=== PATIENT | female | born 2000 | race Caucasian/White ===

== ENCOUNTER 2021-12-31 13:27 | Emergency (ER) | payer MEDICAID ==
[~2021-12-31] VITALS: Ht 172.7 cm; Wt 68.0 kg
[~2021-12-31 13:27] MED LIST: FLUORESCEIN SODIUM 1 MG OPHTHALMIC STRIP OP ONE; PROPARACAINE (OPTHANINE 0.5%) 15 ML DROPS OP ONE
[2021-12-31 13:30] VITALS: BP_SYST 113
--- NOTE | 2021-12-31 13:30 | NUR ---
Patient triaged and placed in waiting room. VSS and patient appears in no acute distress at this time. Accompanied by SELF, awaiting available bed, and MD notified of need for MSE.
--- NOTE | 2021-12-31 13:36 | NUR ---
PT STATES SHE IS [facility] IN [facility] AND SINCE YESTERDAY HAS HAD A RED AND PAINFUL RIGHT EYE. DENIES ANY DISCHARGE OR INJURY. PT STATES THAT SNF MADE HER COME AND GET IT CHECKED. PT STATES SHE THINKS IT IS BECAUSE SHE IN STRESSED DUE TO RECENT SURGERY ON CHILD.
--- NOTE | 2021-12-31 16:04 | NUR ---
received in [facility] for right eye pain and redness. denies trauma. no discharge, blurry vision. c/o eye pain 09/07. denies headache,n,v,dizziness. aao x4. resp even and nonalbored. vss. ambulatory
--- NOTE | 2021-12-31 16:09 | NUR ---
report given to karlie rios for contuinity of care
--- NOTE | 2021-12-31 16:20 | NUR ---
Dr Ware evaluating patient at this time
[2021-12-31] MEDS ORDERED: OFLO5DRO6 EACH EYE (16:28)
[2021-12-31 16:34] VITALS: BP_SYST 113
== END 2021-12-31 16:34 | disposition home or self-care (01) ==
LOC: SED 13:27
DX: H10.31 Unspecified acute conjunctivitis, right eye (principal); Z79.899 Other long term (current) drug therapy
CPT/HCPCS: 99283